=== PATIENT | female | born 1990 ===

== ENCOUNTER 2020-03-09 09:57 | Outpatient (CLI) | payer OTHER | END 2020-03-09 10:05 | disposition home or self-care (01) | LOC: RAD 09:57 | DX: M54.2 Cervicalgia (principal); M54.6 Pain in thoracic spine; M54.5 Low back pain ==

== ENCOUNTER 2023-05-28 11:05 | Outpatient (CLI) | payer OTHER | END 2023-05-28 15:21 | disposition home or self-care (01) | LOC: PRENATAL 11:05 | PROVIDERS: ATTEND Obstetrics & Gynecology Maternal & Fetal Medicine | DX: O35.3XX0 Maternal care for (suspected) damage to fetus from viral disease in mother, not applicable or unspecified (principal); O44.00 Complete placenta previa NOS or without hemorrhage, unspecified trimester; Z3A.20 20 weeks gestation of pregnancy ==

== ENCOUNTER 2025-08-24 12:19 | Outpatient (CLI) | payer OTHER | END 2025-08-24 12:20 | disposition home or self-care (01) | LOC: SONOGRAMA 12:19 | PROVIDERS: ATTEND Pathology Anatomic Pathology & Clinical Pathology | DX: E04.1 Nontoxic single thyroid nodule (principal) ==